=== PATIENT | female | born 1955 | race Caucasian/White ===

== ENCOUNTER 2017-06-22 11:48 | Emergency (ER) | payer OTHER ==
[~2017-06-22] VITALS: Ht 157.5 cm; Wt 71.7 kg
--- NOTE | ~2017-06-22 | CR101 ---
[facility] A Service of [facility] & [facility] RADIOLOGY TEXT RESULTS PATIENT: CLARY LAKE LOCATION: CFTX : 57 UNIT #: [id number] AGE: [address]: Ginna Montiel APRN SEX: F ORDER DR: [id number] [facility] [address] [place], [place] [address] [id number] E MR#: [id number] Acc #: [id number] NAME: CLARY LAKE : 1955 SEX: F STUDY DATE/TIME: 06/22/2017 12:36 UNIT: [facility] ROOM: STUDY DESCRIPTION: CR Facial Bones Min 3 Views Attending Physician: Ginna Montiel A.P.R.N. Ordering Physician: Ed Doctor [id number] [facility] Primary Care Physician: Rubio Fenton M.D. MEDICAL IMAGING REPORT This report is preliminary unless electronic signature is present EXAM 3 views facial bones, 06/22/2017 HISTORY Puncture wound, dog bite. Facial pain. Dog bite right side of face. FINDINGS AP lateral and Martell' views of the facial bones are presented. No fracture. Scattered dental fillings. No non-medical radiodense foreign body. No definite subcutaneous air is seen. If there is clinical concern regarding facial soft tissues, consider contrast-enhanced CT. Visualized cervical spine unremarkable. Visualized paranasal sinuses and mastoid air cells appear clear. Dictated by... Wilberto Barry M.D. THIS IS AN ELECTRONICALLY VERIFIED REPORT Wilberto Barry M.D. at 06/26/2017 8:01 AM Gurvinder TD: 06/22/2017 16:09 JOB #: [id number] MEDICAL IMAGING REPORT Page 1 of 1 COPY
[~2017-06-22 11:48] MED LIST: BACTRIM DS TABL1 TAB PO; KEFLEX PO; VICODIN PO
== END 2017-06-22 13:25 | disposition home or self-care (01) ==
LOC: CED 11:48 → CFTX 11:48
DX: S01.85XA Open bite of other part of head, initial encounter (principal); Z79.899 Other long term (current) drug therapy; W54.0XXA Bitten by dog, initial encounter; Y92.89 Other specified places as the place of occurrence of the external cause
CPT/HCPCS: 70150; 99283